=== PATIENT | female | born 2000 | race African-American/Black ===

== ENCOUNTER 2021-04-19 11:29 | Emergency (ER) | payer OTHER ==
[~2021-04-19] VITALS: Ht 167.6 cm; Wt 68.9 kg
[2021-04-19] MEDS ORDERED: HYDR1TAB33 PO (11:40)
[2021-04-19] MEDS ORDERED: ZOLO100T PO (11:40)
[2021-04-19 12:09] LABS: BASO % 0.5 % (0.0-1.0); EOS # 0.1 10^3/uL (0.0-0.5); EOS % 1.6 % (0.0-3.0); HEMATOCRIT 44.2 % (36.0-47.0); HEMOGLOBIN 14.9 g/dl (12.0-15.5); LYMPH % 23.4 % (24.0-44.0); MEAN CORPUSCULAR HEMOGLOBIN 29.9 pg (27.0-33.0); MEAN CORPUSCULAR HGB CONC 33.7 g/dl (32.0-36.5); MEAN CORPUSCULAR VOLUME 88.8 fl (80.0-96.0); MONO # 0.9 10^3/uL (0.0-0.8); MONO % 10.3 % (2.0-8.0); NEUTROPHILS # 5.5 10^3/uL (1.5-8.5); NEUTROPHILS % 64.1 % (36.0-66.0); PLATELET COUNT, AUTOMATED 344 10^3/uL (150-450); RED BLOOD COUNT 4.98 10^6/uL (4.00-5.40); WHITE BLOOD COUNT 8.6 10^3/uL (4.0-10.0)
[2021-04-19 12:32] LABS: BLOOD UREA NITROGEN 14 MG/DL (7-18); CALCIUM LEVEL 9.5 MG/DL (8.5-10.1); CARBON DIOXIDE LEVEL 25 MEQ/L (21-32); CHLORIDE LEVEL 108 MEQ/L (98-107); CREATININE FOR GFR 0.98 MG/DL (0.55-1.30); GLUCOSE, FASTING 82 MG/DL (70-100); POTASSIUM SERUM 4.2 MEQ/L (3.5-5.1); SODIUM LEVEL 138 MEQ/L (136-145)
[2021-04-19 12:33] LABS: HCG, SERUM QUALITATIVE NEGATIVE (NEGATIVE)
--- OUTSIDE RECORDS SUMMARY | 2021-04-19 13:26 | CCD ---
Author Author [facility] Organization [facility] Address Unknown Phone Unavailable Support Name Relationship Address Phone [facility] Next Of Kin [address] [place] [address] Unavailable Re-disclosure Warning The records that you are about to access may contain information from federally-assisted alcohol or drug abuse programs. If such information is present, then the following federally mandated warning applies: This information has been disclosed to you from records protected by federal confidentiality rules (42 CFR part 2). The federal rules prohibit you from making any further disclosure of this information unless further disclosure is expressly permitted by the written consent of the person to whom it pertains or as otherwise permitted by 42 CFR part 2. A general authorization for the release of medical or other information is NOT sufficient for this purpose. The Federal rules restrict any use of the information to criminally investigate or prosecute any alcohol or drug abuse patient.The records that you are about to access may contain highly sensitive health information, the redisclosure of which is protected by Article 27-F of the [facility] Public Health law. If you continue you may have access to information: Regarding HIV / AIDS; Provided by facilities licensed or operated by the [facility] Office of Mental Health; or Provided by the [facility] Office for People With Developmental Disabilities. If such information is present, then the following [facility] mandated warning applies: This information has been disclosed to you from confidential records which are protected by state law. State law prohibits you from making any further disclosure of this information without the specific written consent of the person to whom it pertains, or as otherwise permitted by law. Any unauthorized further disclosure in violation of state law may result in a fine or chcf sentence or both. A general authorization for the release of medical or other information is NOT sufficient authorization for further disc losure. Immunizations Vaccine Date Status Description Data Source(s) COVID-19 VACCINE Moderna 10/20/2020 12:00:00 AM EDT completed [facility] Vaccine Series Complete: YESThis Data wa s Submitted to [facility] Via [employer]. COVID-19 VACCINE Moderna 09/22/2020 12:00:00 AM EDT completed [employer] Vaccine Series Complete: NOThis Data was Submitted to [facility] Via [employer]. Medications No Information Insurance Providers Payer name Policy type / Coverage type Policy ID Covered republican ID Covered republican's relationship to lynch Policy [place] Plan Information [facility] [id number] Problems, Conditions, and Diagnoses No Information Surgeries/Procedures No Information Results No Information Social History No Information
--- NOTE | 2021-04-19 13:53 | REP ---
INDICATION: IUD pulled out, bleeding since COMPARISON: None. TECHNIQUE: Transabdominal pelvic ultrasound was performed. Patient declined transvaginal examination. FINDINGS: Bladder is unremarkable and measures 5.8 x 1.3 x 2.7 cm. Heterogeneous anteverted uterus measures 6.6 x 3.3 x 4.6 cm. The endometrial complex measures 9.4 mm thickness. No discrete uterine or endometrial abnormalities are appreciated. Ovaries are not visualized. No pelvic fluid or adnexal mass lesion. IMPRESSION: Normal anteverted uterus. Ovaries not visualized. No pelvic fluid or obvious abnormality. <Electronically signed by Otoniel Dunham > 04/19/21 [id number]
[2021-04-19 14:22] VITALS: BP 119/70
== END 2021-04-19 14:23 | disposition home or self-care (01) ==
LOC: M ED 11:29
DX: N93.9 Abnormal uterine and vaginal bleeding, unspecified (principal); T83.89XA Other specified complication of genitourinary prosthetic devices, implants and grafts, initial encounter

== ENCOUNTER 2021-09-09 16:22 | Emergency (ER) | payer OTHER ==
[~2021-09-09] VITALS: Ht 167.6 cm; Wt 70.5 kg
[~2021-09-09 16:22] MED LIST: HYDR1TAB33 PO; ZOLO100T PO
[2021-09-09] MEDS ORDERED: MELA3TAB24 PO (16:29)
[2021-09-09 18:52] LABS: HEMATOCRIT 38.5 % (36.0-47.0); HEMOGLOBIN 13.2 g/dl (12.0-15.5); MEAN CORPUSCULAR HEMOGLOBIN 30.4 pg (27.0-33.0); MEAN CORPUSCULAR HGB CONC 34.3 g/dl (32.0-36.5); MEAN CORPUSCULAR VOLUME 88.7 fl (80.0-96.0); PLATELET COUNT, AUTOMATED 306 10^3/uL (150-450); RED BLOOD COUNT 4.34 10^6/uL (4.00-5.40); WHITE BLOOD COUNT 6.3 10^3/uL (4.0-10.0)
[2021-09-09 19:59] LABS: GC DNA AMPLIFICATION NEGATIVE (NEGATIVE)
[2021-09-09 21:26] LABS: BLOOD UREA NITROGEN 8 MG/DL (7-18); CALCIUM LEVEL 8.8 MG/DL (8.5-10.1); CARBON DIOXIDE LEVEL 25 MEQ/L (21-32); CHLORIDE LEVEL 110 MEQ/L (98-107); CREATININE FOR GFR 0.57 MG/DL (0.55-1.30); GLOMERULAR FILTRATION RATE > 60.0 (>60); GLUCOSE, FASTING 80 MG/DL (70-100); POTASSIUM SERUM 3.9 MEQ/L (3.5-5.1); SODIUM LEVEL 140 MEQ/L (136-145)
[2021-09-09 22:13] VITALS: BP 128/60
== END 2021-09-09 22:21 | disposition home or self-care (01) ==
LOC: M ED 16:22
DX: R10.2 Pelvic and perineal pain (principal); N73.9 Female pelvic inflammatory disease, unspecified; F41.9 Anxiety disorder, unspecified; F32.9 Major depressive disorder, single episode, unspecified; F17.290 Nicotine dependence, other tobacco product, uncomplicated; Z79.899 Other long term (current) drug therapy

== ENCOUNTER 2022-03-11 09:07 | Inpatient (IN) | payer OTHER ==
[~2022-03-11] VITALS: Ht 167.6 cm; Wt 80.6 kg
[~2022-03-11 09:07] MED LIST changes: +MELA3TAB24 PO
[2022-03-11] MEDS ORDERED: SERTRALINE (09:21)
[2022-03-11] MEDS ORDERED: CLON0.2T PO (09:21)
[2022-03-11] MEDS ORDERED: PRAZ1CAP PO (09:21)
[2022-03-11] MEDS ORDERED: NS 2,420 ML in IV 1 EA IV ONE (09:50)
[2022-03-11 10:52] LABS: VENOUS BASE EXCESS -3.5 (-2.0-2.0); VENOUS HCO3 22.8 MEQ/L (23.0-27.0); VENOUS PARTIAL PRESSURE CO2 45.6 mmHg (38.0-50.0); VENOUS PARTIAL PRESSURE O2 63.3 mmHg (30.0-50.0); VENOUS PH 7.317 UNITS (7.330-7.430); VENOUS STANDARD HCO3 21.4 MEQ/L; VENOUS TOTAL CO2 24.2 MEQ/L (24.0-28.0)
[2022-03-11 10:57] LABS: BASO % 0.6 % (0.0-1.0); EOS # 0.1 10^3/uL (0.0-0.5); EOS % 1.6 % (0.0-3.0); HEMOGLOBIN 14.8 g/dl (12.0-15.5); LYMPH # 1.9 10^3/uL (1.5-5.0); LYMPH % 36.7 % (24.0-44.0); MEAN CORPUSCULAR HEMOGLOBIN 29.7 pg (27.0-33.0); MEAN CORPUSCULAR HGB CONC 33.6 g/dl (32.0-36.5); MEAN CORPUSCULAR VOLUME 88.4 fl (80.0-96.0); MONO # 0.4 10^3/uL (0.0-0.8); MONO % 7.6 % (2.0-8.0); NEUTROPHILS # 2.7 10^3/uL (1.5-8.5); NEUTROPHILS % 53.3 % (36.0-66.0); PLATELET COUNT, AUTOMATED 324 10^3/uL (150-450); RED BLOOD COUNT 4.98 10^6/uL (4.00-5.40); WHITE BLOOD COUNT 5.1 10^3/uL (4.0-10.0)
[2022-03-11 11:41] LABS: ACETAMINOPHEN LEVEL < 2.0 UG/ML (10.0-30.0); ALBUMIN 4.2 GM/DL (3.2-5.2); ALT/SGPT 23 U/L (12-78); BILIRUBIN,DIRECT < 0.1 MG/DL (0.0-0.2); BILIRUBIN,TOTAL 0.4 MG/DL (0.2-1.0); SALICYLATE LEVEL < 1.7 MG/DL (5.0-30.0)
[2022-03-11 11:43] LABS: AMPHETAMINES LEVEL URINE NEGATIVE (NEGATIVE); BARBITURATES URINE NEGATIVE (NEGATIVE); BENZODIAZEPINES URINE NEGATIVE (NEGATIVE); CANNABINOIDS URINE POSITIVE (NEGATIVE); COCAINE METABOLITE URINE NEGATIVE (NEGATIVE); METHADONE URINE NEGATIVE (NEGATIVE); OPIATES URINE NEGATIVE (NEGATIVE); PHENCYCLIDINE URINE NEGATIVE (NEGATIVE)
[2022-03-11 11:47] LABS: BLOOD UREA NITROGEN 8 MG/DL (7-18); CALCIUM LEVEL 9.6 MG/DL (8.5-10.1); CARBON DIOXIDE LEVEL 24 MEQ/L (21-32); CHLORIDE LEVEL 107 MEQ/L (98-107); CREATININE FOR GFR 0.55 MG/DL (0.55-1.30); ETHYL ALCOHOL (ETHANOL) < 0.003 % (0.000-0.010); GLOMERULAR FILTRATION RATE > 60.0 (>60); GLUCOSE, FASTING 81 MG/DL (70-100); MAGNESIUM LEVEL 2.1 MG/DL (1.8-2.4); POTASSIUM SERUM 4.8 MEQ/L (3.5-5.1); SODIUM LEVEL 136 MEQ/L (136-145); THYROID STIMULATING HORMONE 0.742 uIU/ML (0.358-3.740)
[2022-03-11 12:09] LABS: RSV AMPLIFICATION NEGATIVE (NEGATIVE)
[2022-03-11] MEDS ORDERED: ZOLO100T PO (16:17)
[2022-03-11] MEDS ORDERED: MIDOTAB PO (16:17)
[2022-03-11] MEDS ORDERED: HOME MED LIST COMPLETE! XX SCH (16:20)
[2022-03-11] MEDS ORDERED: PROMETHAZINE 25 MG TAB PO ONE (17:15)
[2022-03-11] MEDS ORDERED: ONDANSETRON 4MG ORAL DISINTEGRATING TAB PO ONE (18:20)
[2022-03-11] MEDS ORDERED: MOM 30ML SUSPENSION UDC PO PRN (18:50)
[2022-03-11] MEDS ORDERED: traZODone 50 MG TAB PO PRN (18:50)
[2022-03-11] MEDS ORDERED: OLANZapine ORAL DISINTEGRATING TAB 5MG PO PRN (18:50)
[2022-03-11] MEDS ORDERED: NICOTINE 21MG/24HR 1 EA TRANSDERMAL TD PRN (18:50)
[2022-03-11] MEDS ORDERED: ACETAMINOPHEN TAB 650MG DOSE (2X325MG) PO PRN (18:50)
[2022-03-11] MEDS ORDERED: MAALOX 30 ML SUSP *UDC PO PRN (18:50)
[2022-03-12 00:59] VITALS: BP 146/69
[2022-03-12] MEDS: busPIRone 10 MG TAB PO SCH ×2 (01:18→08:02)
[2022-03-12 05:39] VITALS: BP 111/56
[2022-03-12] MEDS ORDERED: SERTRALINE HCL 50 MG TAB PO SCH (09:00)
[2022-03-12] MEDS ORDERED: SERTRALINE 100 MG TAB PO SCH (09:00)
== END 2022-03-12 13:43 | disposition home or self-care (01) | DRG 882 ==
LOC: M ED 09:07 → M ED INP 18:47 → M PSY 03-12 00:52
PROVIDERS: ADMIT Psychiatry & Neurology Psychiatry; ATTEND Psychiatry & Neurology Psychiatry
DX: F43.10 Post-traumatic stress disorder, unspecified (principal); R45.851 Suicidal ideations; F32.9 Major depressive disorder, single episode, unspecified; F17.200 Nicotine dependence, unspecified, uncomplicated; F50.9 Eating disorder, unspecified; Z62.810 Personal history of physical and sexual abuse in childhood; F41.9 Anxiety disorder, unspecified; Z91.410 Personal history of adult physical and sexual abuse; F12.90 Cannabis use, unspecified, uncomplicated; G47.00 Insomnia, unspecified; Z79.899 Other long term (current) drug therapy

== ENCOUNTER 2022-03-18 14:55 | Inpatient (IN) | payer OTHER ==
[~2022-03-18] VITALS: Ht 167.6 cm; Wt 79.2 kg
[~2022-03-18 14:55] MED LIST changes: +CLON0.2T PO; +MIDOTAB PO; +PRAZ1CAP PO; +SERTRALINE
[2022-03-18 15:39] LABS: BASO % 0.2 % (0.0-1.0); HEMATOCRIT 47.2 % (36.0-47.0); LYMPH % 7.8 % (24.0-44.0); MEAN CORPUSCULAR HEMOGLOBIN 29.6 pg (27.0-33.0); MEAN CORPUSCULAR HGB CONC 33.9 g/dl (32.0-36.5); MEAN CORPUSCULAR VOLUME 87.2 fl (80.0-96.0); MONO # 0.6 10^3/uL (0.0-0.8); MONO % 4.5 % (2.0-8.0); NEUTROPHILS # 11.3 10^3/uL (1.5-8.5); PLATELET COUNT, AUTOMATED 367 10^3/uL (150-450); RED BLOOD COUNT 5.41 10^6/uL (4.00-5.40)
[2022-03-18 16:13] LABS: ALBUMIN 4.5 GM/DL (3.2-5.2); ALT/SGPT 28 U/L (12-78); BILIRUBIN,DIRECT 0.2 MG/DL (0.0-0.2); BILIRUBIN,TOTAL 0.6 MG/DL (0.2-1.0); BLOOD UREA NITROGEN 7 MG/DL (7-18); CALCIUM LEVEL 10.1 MG/DL (8.5-10.1); CARBON DIOXIDE LEVEL 24 MEQ/L (21-32); CHLORIDE LEVEL 101 MEQ/L (98-107); CREATININE FOR GFR 0.74 MG/DL (0.55-1.30); GLOMERULAR FILTRATION RATE > 60.0 (>60); GLUCOSE, FASTING 84 MG/DL (70-100); LIPASE 1238 U/L (73-393); POTASSIUM SERUM 3.4 MEQ/L (3.5-5.1); SODIUM LEVEL 133 MEQ/L (136-145); TOTAL PROTEIN 8.7 GM/DL (6.4-8.2)
[2022-03-18] MEDS ORDERED: NS 1,000 ML IV ONE ×2 (16:15→17:15)
[2022-03-18] MEDS ORDERED: ONDANSETRON 4MG 2ML VIAL IV ONE (16:15)
[2022-03-18 16:37] LABS: HCG, SERUM QUALITATIVE NEGATIVE (NEGATIVE)
[2022-03-18] MEDS ORDERED: MORPHINE 4 MG/ML 1ML VIAL/SYRINGE IV ONE (17:15)
[2022-03-18] MEDS ORDERED: ISOVUE-370 76% 100ML VIAL As Ordered ONE (17:17)
[2022-03-18] MEDS ORDERED: PANTOPRAZOLE 40MG VIAL IV ONE (18:35)
[2022-03-18] MEDS: MORPHINE 2 MG/ML 1ML VIAL IV PRN (19:33)
[2022-03-18 21:23] LABS: TRIGLYCERIDES LEVEL 53 MG/DL (<150)
[2022-03-18] MEDS ORDERED: PREN27TA3 PO (21:46)
[2022-03-18] MEDS ORDERED: HOME MED LIST COMPLETE! XX SCH (21:50)
[2022-03-18] MEDS ORDERED: HYDROMORPHONE HCL 0.5 MG/ 0.5 ML SYRINGE (J1170 PER 1) IV PRN (22:30)
[2022-03-18] MEDS ORDERED: KETOROLAC 30 MG/ML 1ML VIAL IV PRN (22:30)
[2022-03-18] MEDS ORDERED: METOCLOPRAMIDE INJ 10MG/2ML VIAL (J2765 PER 1) IV PRN (22:30)
[2022-03-18] MEDS: LR 1,000 ML IV SCH (23:52)
[2022-03-19] MEDS: ONDANSETRON 4MG 2ML VIAL IV PRN ×3 (02:06→21:16)
[2022-03-19] MEDS: MORPHINE 2 MG/ML 1ML VIAL IV PRN (02:11)
[2022-03-19] MEDS: HEPARIN SOD (PORCINE) 5000UNITS/ML 1ML VIAL/SYRINGE SC SCH ×3 (05:16→21:17)
[2022-03-19] MEDS: LR 1,000 ML IV SCH ×3 (06:45→18:45)
[2022-03-19 07:31] LABS: HEMATOCRIT 43.8 % (36.0-47.0); HEMOGLOBIN 14.5 g/dl (12.0-15.5)
[2022-03-19 07:56] LABS: ERYTHROCYTE SEDIMENTATION RATE 4 mm/hr (0-20)
[2022-03-19 08:28] LABS: ALBUMIN 3.6 GM/DL (3.2-5.2); ALT/SGPT 29 U/L (12-78); BILIRUBIN,TOTAL 0.5 MG/DL (0.2-1.0); BLOOD UREA NITROGEN 8 MG/DL (7-18); CALCIUM LEVEL 9.1 MG/DL (8.5-10.1); CARBON DIOXIDE LEVEL 24 MEQ/L (21-32); CHLORIDE LEVEL 107 MEQ/L (98-107); CREATININE FOR GFR 0.64 MG/DL (0.55-1.30); FREE T3 2.9 PG/ML (2.2-4.0); FREE T4 1.08 NG/DL (0.76-1.46); GLOMERULAR FILTRATION RATE > 60.0 (>60); GLUCOSE, FASTING 76 MG/DL (70-100); POTASSIUM SERUM 3.8 MEQ/L (3.5-5.1); SODIUM LEVEL 139 MEQ/L (136-145); TOTAL PROTEIN 6.9 GM/DL (6.4-8.2)
[2022-03-19 09:53] LABS: THYROID PEROXIDASE ANTIBODY < 28.0 U/ML (<60.0)
[2022-03-19 21:24] VITALS: BP 123/61
[2022-03-20] MEDS: LR 1,000 ML IV SCH (01:10)
[2022-03-20] MEDS: HEPARIN SOD (PORCINE) 5000UNITS/ML 1ML VIAL/SYRINGE SC SCH (05:38)
[2022-03-20 06:00] VITALS: BP 105/57
[2022-03-20 06:52] LABS: HEMATOCRIT 42.9 % (36.0-47.0); HEMOGLOBIN 14.3 g/dl (12.0-15.5); MEAN CORPUSCULAR HEMOGLOBIN 29.7 pg (27.0-33.0); MEAN CORPUSCULAR HGB CONC 33.3 g/dl (32.0-36.5); MEAN CORPUSCULAR VOLUME 89.2 fl (80.0-96.0); PLATELET COUNT, AUTOMATED 269 10^3/uL (150-450); RED BLOOD COUNT 4.81 10^6/uL (4.00-5.40); WHITE BLOOD COUNT 5.5 10^3/uL (4.0-10.0)
[2022-03-20 07:29] LABS: ALBUMIN 3.3 GM/DL (3.2-5.2); ALT/SGPT 37 U/L (12-78); BILIRUBIN,TOTAL 0.6 MG/DL (0.2-1.0); BLOOD UREA NITROGEN 7 MG/DL (7-18); CARBON DIOXIDE LEVEL 25 MEQ/L (21-32); CHLORIDE LEVEL 107 MEQ/L (98-107); CREATININE FOR GFR 0.63 MG/DL (0.55-1.30); GLOMERULAR FILTRATION RATE > 60.0 (>60); GLUCOSE, FASTING 77 MG/DL (70-100); LIPASE 102 U/L (73-393); POTASSIUM SERUM 3.8 MEQ/L (3.5-5.1); SODIUM LEVEL 139 MEQ/L (136-145); TOTAL PROTEIN 6.3 GM/DL (6.4-8.2)
[2022-03-20] MEDS ORDERED: NORCO, ANEXSIA 5/325MG TABLET (HYDROcodone/ACETAMINOPHEN) PO PRN ×2 (10:55)
[2022-03-20] MEDS ORDERED: ACETAMINOPHEN 500 MG TAB PO PRN (10:55)
[2022-03-23 12:08] LABS: THRYOGLOBULIN ANTIBODIES (ATA) < 1.0 IU/mL (0.0-0.9); THYROGLOBULIN QUANTITATIVE 35.2 ng/mL (1.5-38.5); THYROID STIMULATING IMMUNOGLOB 0.11 IU/L (0.00-0.55)
== END 2022-03-20 14:50 | disposition home or self-care (01) | DRG 440 ==
LOC: M ED 14:55 → M ED INP 22:29 → ENRESERV 03-19 12:48 → M MS5PR 03-19 14:25
PROVIDERS: ADMIT Internal Medicine; ATTEND Internal Medicine
DX: K85.90 Acute pancreatitis without necrosis or infection, unspecified (principal); E07.9 Disorder of thyroid, unspecified; Z20.822 Contact with and (suspected) exposure to COVID-19; Z79.899 Other long term (current) drug therapy; Z91.51 Personal history of suicidal behavior

== ENCOUNTER 2022-03-26 18:51 | Emergency (ER) | payer OTHER ==
[~2022-03-26] VITALS: Ht 167.6 cm; Wt 78.6 kg
[~2022-03-26 18:51] MED LIST changes: +PREN27TA3 PO
[2022-03-26 19:48] LABS: BASO % 0.4 % (0.0-1.0); EOS # 0.1 10^3/uL (0.0-0.5); EOS % 0.8 % (0.0-3.0); HEMATOCRIT 40.6 % (36.0-47.0); HEMOGLOBIN 13.8 g/dl (12.0-15.5); LYMPH # 2.7 10^3/uL (1.5-5.0); LYMPH % 26.8 % (24.0-44.0); MEAN CORPUSCULAR HEMOGLOBIN 29.3 pg (27.0-33.0); MEAN CORPUSCULAR VOLUME 86.2 fl (80.0-96.0); MONO # 0.8 10^3/uL (0.0-0.8); MONO % 7.9 % (2.0-8.0); NEUTROPHILS # 6.4 10^3/uL (1.5-8.5); NEUTROPHILS % 63.8 % (36.0-66.0); PLATELET COUNT, AUTOMATED 317 10^3/uL (150-450); RED BLOOD COUNT 4.71 10^6/uL (4.00-5.40); WHITE BLOOD COUNT 10.1 10^3/uL (4.0-10.0)
[2022-03-26 20:22] LABS: ALBUMIN 3.9 GM/DL (3.2-5.2); BILIRUBIN,DIRECT 0.1 MG/DL (0.0-0.2); BILIRUBIN,TOTAL 0.3 MG/DL (0.2-1.0); TOTAL PROTEIN 7.3 GM/DL (6.4-8.2)
[2022-03-26 21:19] VITALS: BP 136/77
[2022-03-26] MEDS ORDERED: ONDANSETRON 4MG 2ML VIAL IV ONE (21:25)
[2022-03-26] MEDS ORDERED: NS 1,000 ML IV ONE (21:25)
[2022-03-26] MEDS ORDERED: MORPHINE 4 MG/ML 1ML VIAL/SYRINGE IV ONE (21:25)
[2022-03-26] MEDS ORDERED: ISOVUE-370 76% 100ML VIAL As Ordered ONE (21:29)
[2022-03-27] MEDS ORDERED: DICYCLOMINE 10 MG CAP PO ONE (00:15)
[2022-03-27] MEDS ORDERED: PROMETHAZINE 25 MG TAB PO ONE (00:15)
[2022-03-27] MEDS ORDERED: PROM25TA12 PO (01:39)
[2022-03-27] MEDS ORDERED: DICY10CA13 PO (01:39)
[2022-03-27] MEDS ORDERED: NORCO 5/325MG TABLET (HOME DOSE PACK) PO ONE (01:40)
[2022-03-28] MEDS ORDERED: ONDA4TAB6 PO (17:09)
[2022-03-28] MEDS ORDERED: AMOX875T2 PO (17:09)
[2022-03-28] MEDS ORDERED: PROT1TAB2 PO (17:09)
== END 2022-03-27 02:25 | disposition home or self-care (01) ==
LOC: M ED 18:51
DX: R10.9 Unspecified abdominal pain (principal); R11.2 Nausea with vomiting, unspecified; R19.7 Diarrhea, unspecified; Z87.19 Personal history of other diseases of the digestive system; K76.89 Other specified diseases of liver; Z79.899 Other long term (current) drug therapy
CPT/HCPCS: 74177; 80047; 80076; 83690; 84702; 85025; 96361; 96374; 96375; 99284; J2270; J2405; Q9967

== ENCOUNTER 2022-03-28 12:17 | Emergency (ER) | payer OTHER ==
[~2022-03-28] VITALS: Ht 167.6 cm; Wt 77.3 kg
[~2022-03-28 12:17] MED LIST changes: +DICY10CA13 PO; +PROM25TA12 PO
[2022-03-28 12:52] LABS: BASO % 0.4 % (0.0-1.0); EOS % 0.1 % (0.0-3.0); HEMATOCRIT 44.7 % (36.0-47.0); HEMOGLOBIN 15.2 g/dl (12.0-15.5); LYMPH # 1.8 10^3/uL (1.5-5.0); LYMPH % 15.8 % (24.0-44.0); MEAN CORPUSCULAR HEMOGLOBIN 29.3 pg (27.0-33.0); MEAN CORPUSCULAR VOLUME 86.1 fl (80.0-96.0); MONO # 1.1 10^3/uL (0.0-0.8); MONO % 9.9 % (2.0-8.0); NEUTROPHILS # 8.3 10^3/uL (1.5-8.5); NEUTROPHILS % 73.5 % (36.0-66.0); PLATELET COUNT, AUTOMATED 366 10^3/uL (150-450); RED BLOOD COUNT 5.19 10^6/uL (4.00-5.40); WHITE BLOOD COUNT 11.3 10^3/uL (4.0-10.0)
[2022-03-28 13:27] LABS: HCG, SERUM QUALITATIVE NEGATIVE (NEGATIVE)
[2022-03-28 13:38] LABS: ALBUMIN 4.1 GM/DL (3.2-5.2); ALT/SGPT 28 U/L (12-78); BILIRUBIN,DIRECT 0.2 MG/DL (0.0-0.2); BILIRUBIN,TOTAL 0.7 MG/DL (0.2-1.0); BLOOD UREA NITROGEN 9 MG/DL (7-18); CALCIUM LEVEL 9.7 MG/DL (8.5-10.1); CARBON DIOXIDE LEVEL 21 MEQ/L (21-32); CHLORIDE LEVEL 103 MEQ/L (98-107); CREATININE FOR GFR 0.71 MG/DL (0.55-1.30); GLOMERULAR FILTRATION RATE > 60.0 (>60); GLUCOSE, FASTING 81 MG/DL (70-100); LIPASE 95 U/L (73-393); POTASSIUM SERUM 3.5 MEQ/L (3.5-5.1); SODIUM LEVEL 133 MEQ/L (136-145); TOTAL PROTEIN 7.8 GM/DL (6.4-8.2)
[2022-03-28] MEDS ORDERED: LORazepam 2 MG/ML VIAL IV STA (14:11)
[2022-03-28] MEDS ORDERED: NS 1,000 ML IV ONE (14:15)
[2022-03-28] MEDS ORDERED: GI COCKTAIL 50ML BTL(HYOSCYAMINE/MAALOX/LIDOCAINE VISCOUS)(1:3:1) PO ONE (14:15)
[2022-03-28] MEDS ORDERED: ONDANSETRON 4MG 2ML VIAL IV ONE (14:50)
[2022-03-28] MEDS ORDERED: PANTOPRAZOLE 40MG TAB (PROTONIX) PO ONE (17:05)
[2022-03-28] MEDS ORDERED: PROT1TAB2 PO (17:09)
[2022-03-28] MEDS ORDERED: ONDA4TAB6 PO (17:09)
[2022-03-28] MEDS ORDERED: AMOX875T2 PO (17:09)
[2022-03-28 17:27] VITALS: BP 154/90
== END 2022-03-28 17:30 | disposition home or self-care (01) ==
LOC: M ED 12:17 → EDBD 12:17 → M ED 17:30
DX: K29.70 Gastritis, unspecified, without bleeding (principal); K05.00 Acute gingivitis, plaque induced; F32.A Depression, unspecified; F41.9 Anxiety disorder, unspecified; Z79.899 Other long term (current) drug therapy
CPT/HCPCS: 80048; 80076; 83690; 84703; 85025; 96361; 96374; 96375; 99284; J2060; J2405

== ENCOUNTER 2022-04-01 04:44 | Emergency (ER) | payer OTHER ==
[~2022-04-01] VITALS: Ht 167.6 cm; Wt 75.9 kg
[~2022-04-01 04:44] MED LIST changes: +AMOX875T2 PO; +ONDA4TAB6 PO; +PROT1TAB2 PO
[2022-04-01] MEDS ORDERED: NS 1,000 ML IV ONE ×2 (06:20→07:40)
[2022-04-01] MEDS ORDERED: ONDANSETRON 4MG 2ML VIAL IV ONE (06:20)
[2022-04-01 07:00] LABS: BASO % 0.5 % (0.0-1.0); EOS % 0.1 % (0.0-3.0); HEMATOCRIT 50.5 % (36.0-47.0); LYMPH # 1.3 10^3/uL (1.5-5.0); LYMPH % 15.7 % (24.0-44.0); MEAN CORPUSCULAR HEMOGLOBIN 29.5 pg (27.0-33.0); MEAN CORPUSCULAR HGB CONC 33.7 g/dl (32.0-36.5); MEAN CORPUSCULAR VOLUME 87.7 fl (80.0-96.0); MONO # 0.6 10^3/uL (0.0-0.8); MONO % 6.8 % (2.0-8.0); NEUTROPHILS # 6.4 10^3/uL (1.5-8.5); NEUTROPHILS % 76.4 % (36.0-66.0); PLATELET COUNT, AUTOMATED 342 10^3/uL (150-450); RED BLOOD COUNT 5.76 10^6/uL (4.00-5.40); WHITE BLOOD COUNT 8.3 10^3/uL (4.0-10.0)
[2022-04-01 07:22] LABS: HCG, SERUM QUALITATIVE NEGATIVE (NEGATIVE)
[2022-04-01 10:36] LABS: ALBUMIN 3.5 GM/DL (3.2-5.2); ALT/SGPT 17 U/L (12-78); BILIRUBIN,DIRECT 0.1 MG/DL (0.0-0.2); BILIRUBIN,TOTAL 0.4 MG/DL (0.2-1.0); BLOOD UREA NITROGEN 10 MG/DL (7-18); CALCIUM LEVEL 8.8 MG/DL (8.5-10.1); CARBON DIOXIDE LEVEL 23 MEQ/L (21-32); CHLORIDE LEVEL 105 MEQ/L (98-107); CREATININE FOR GFR 0.64 MG/DL (0.55-1.30); FREE T4 1.47 NG/DL (0.76-1.46); GLOMERULAR FILTRATION RATE > 60.0 (>60); GLUCOSE, FASTING 69 MG/DL (70-100); LIPASE 126 U/L (73-393); MAGNESIUM LEVEL 2.1 MG/DL (1.8-2.4); POTASSIUM SERUM 3.6 MEQ/L (3.5-5.1); SODIUM LEVEL 138 MEQ/L (136-145); THYROID STIMULATING HORMONE 0.689 uIU/ML (0.358-3.740); TOTAL PROTEIN 6.9 GM/DL (6.4-8.2)
[2022-04-01 11:15] VITALS: BP 131/73
== END 2022-04-01 11:58 | disposition home or self-care (01) ==
LOC: M ED 04:44
DX: R10.9 Unspecified abdominal pain (principal); R11.2 Nausea with vomiting, unspecified; R19.7 Diarrhea, unspecified; Z87.19 Personal history of other diseases of the digestive system; Z79.899 Other long term (current) drug therapy
CPT/HCPCS: 80048; 80076; 83690; 83735; 84439; 84443; 84703; 85025; 96361; 96374; 99285; J2405